=== PATIENT | female | born 1950 | race Caucasian/White ===

== ENCOUNTER → 2020-11-25 13:29 | Outpatient (CLI) | payer MEDICARE, OTHER, SELFPAY | PROVIDERS: PCP Internal Medicine; Referring Provider Internal Medicine; Visit Provider Internal Medicine | DX: M81.0 Age-related osteoporosis without current pathological fracture (principal) | CPT/HCPCS: 77080 ==

== ENCOUNTER 2021-04-26 14:52 | Emergency (ER) | payer MEDICARE, OTHER, SELFPAY ==
[2021-04-26 15:00] VITALS: BP 145/61; PULSE 83; RESP 18; TEMP 36.4; O2SAT 98; BMI 22.6
[2021-04-26 15:21] LABS: Add Manual Diff / Slide Review NO; Basophils Absolute Auto 100 /uL (0-100); Basophils Percent Auto 0.8 % (0-2); Eosinophils Absolute Auto 100 /uL (0-450); Eosinophils Percent Auto 1.3 % (2-4); Hemoglobin 13.2 g/dL (12.0-16.0); Lymphocytes Absolute Auto 2000 /uL (1100-4500); Lymphocytes Percent Auto 17.6 % (25-40); Mean Corpuscular HGB Conc 33.9 % (30-36); Mean Corpuscular Hemoglobin 29.4 PG (26-34); Mean Corpuscular Volume 86.8 fL (80-100); Monocytes Absolute Auto 1000 /uL (0-900); Monocytes Percent Auto 8.7 % (3-14); Neutrophils Absolute Auto 8200 /uL (1500-7000); Neutrophils Percent Auto 71.6 % (50-75); Platelet Count 249 X10^3/uL (150-400); Red Blood Cell Count 4.49 X10^6/uL (4.0-5.2); Red Cell Distribution Width 13.4 % (11.6-14.8); White Blood Cell Count 11.5 X10^3/uL (4.5-11.0)
[2021-04-26 15:36] LABS: Alanine Aminotransferase 14 IU/L (<35); Albumin 4.4 g/dL (3.5-5.0); Albumin Globulin Ratio 1.6 (1.0-2.8); Alkaline Phosphatase 71 U/L (38-126); Aspartate Aminotransferase 24 IU/L (14-36); BUN Creatinine Ratio 23.1 (6-22); Bilirubin Total 0.4 mg/dL (0.2-1.3); Blood Urea Nitrogen 18 mg/dL (7-17); Calcium 9.9 mg/dL (8.4-10.2); Carbon Dioxide 26 mmol/L (22-32); Chloride 105 mmol/L (98-107); Estimated Glomerular Filt Rate > 60.0 mL/min (>60); Globulin 2.7 g/dL (1.7-4.1); Glucose 91 mg/dL (80-110); HEMOLYSIS < 15 (0-50); Lipase 104 U/L (23-300); Potassium 3.9 mmol/L (3.4-5.1); Sodium 139 mmol/L (137-145); Total Protein 7.1 g/dL (6.3-8.2)
== END 2021-04-26 16:54 | disposition left against medical advice (07) ==
PROVIDERS: Emergency Provider Emergency Medicine
DX: R10.9 Unspecified abdominal pain (principal)
CPT/HCPCS: 36415; 80053; 83690; 85025; 99283

== ENCOUNTER 2021-04-28 15:59 | Emergency (ER) | payer MEDICARE, OTHER, SELFPAY ==
[2021-04-28 16:09] VITALS: BP 141/63; PULSE 83; RESP 16; TEMP 36.6; O2SAT 98
--- NOTE | 2021-04-28 16:21 | ED.ABDPAIN ---
HPI - Abdominal Pain General Chief Complaint: Abdominal Pain Stated Complaint: Plank Pain and Abd Pain Time Seen by Provider: 04/28/21 16:20 Source: patient Mode of arrival: Ambulatory History of Present Illness HPI narrative: The patient developed left back pain 5 days ago. She has persistent left lower quadrant abdominal pain. She denies dysuria or hematuria. She has no nausea, vomiting, diarrhea or constipation. She says she has a history of colitis. Her appetite remains normal. She has no fever chills with the current symptoms. She has no URI symptoms, no sore throat, no headache. She has no cough, chest pain or palpitations. She has no prior history of GI or surgeries. Related Data Home Medications Medication Instructions Recorded Confirmed levothyroxine 75 mcg tablet 75 mcg PO DAILY 04/28/21 04/28/21 (Synthroid) metformin 500 mg tablet 500 mg PO DAILY 04/28/21 04/28/21 omeprazole 20 mg capsule,delayed 20 mg PO DAILY 04/28/21 04/28/21 release pravastatin 40 mg tablet 40 mg PO DAILY 04/28/21 04/28/21 Allergies Allergy/AdvReac Type Severity Reaction Status Date / Time codeine Allergy Verified 04/28/21 16:14 Sulfa (Sulfonamide Allergy Verified 04/28/21 16:14 Antibiotics) Review of Systems Constitutional Constitutional: Reports as per HPI, Denies body ache(s), Denies chills, Denies fever(s) and Denies headache(s) Eyes Eyes: Denies change in vision ENT Ears, Nose, Mouth, and Throat: Denies vertigo, Denies headache(s) and Denies sore throat Cardiovascular Cardiovascular: Denies chest pain, Denies rapid heart rate and Denies dyspnea Respiratory Respiratory: Denies chest congestion, Denies cough and Denies dyspnea Gastrointestinal Gastrointestinal: Reports as per HPI Genitourinary Genitourinary: Reports as per HPI Musculoskeletal Musculoskeletal: Reports back pain, Denies myalgias and Denies muscle cramps Integumentary/Breasts Skin/Breast: Denies lesions and Denies rash Neurologic Neurologic: Denies confusion, Denies vertigo and Denies headache(s) Psychiatric Psychiatric: Denies confusion Hematologic/Lymphatic On Anticoagulants: No Patient History Medical History (Updated 04/28/21 @ 18:44 by Tim Mckenna MD) Hypothyroidism Social History Smoking Status: Current every day smoker Smoking Status: Current every day smoker alcohol intake frequency: other Substance Use Type: does not use Exam Initial Vital Signs Initial Vital Signs: Vital Signs Temperature 98 F 04/28/21 16:09 Pulse Rate 83 04/28/21 16:09 Respiratory Rate 16 04/28/21 16:09 Blood Pressure 141/63 H 04/28/21 16:09 Pulse Oximetry 98 04/28/21 16:09 Const General: cooperative, healthy appearing and comfortable Limitations: mental status not altered HENCT Head: normal to inspection, normocephalic and atraumatic Face and sinus: dry mucous membranes Throat: posterior oropharynx normal Eyes Conjunctivae: conjunctivae normal Sclera: sclerae normal Pupils: PERRL EOM: EOM intact bilaterally Neck Neck: No JVD Resp Auscultation: clear to auscultation bilaterally Cardio Rate: regular rate Rhythm: regular rhythm Heart Sounds: S1 normal, S2 normal and no murmurs GI Other: No distension. LLQ tenderness without distention, guarding or rebound. No palpable masses. Back/Spine/Pelvis Back: No CVA tenderness Skin General: no rashes or lesions noted Neuro General: patient alert, patient awake, patient oriented x3 and no focal motor deficits Extrem General: normal to inspection, no pedal edema and no calf tenderness Psych Mental Status: mental status grossly normal Course Course Course Narrative: CT shows diverticulosis without evidence of diverticulitis. There is perinephric stranding, nonspecific. There is also a paraovarian cyst that seemingly has nothing to do with her current pain. She initially had left lower abdominal pain. She now complains of epigastric pain. She was given a GI cocktail, Protonix has been ordered. A POC UA showed protein, trace blood only. Microscopic evaluation the urine does show mild hematuria. Conceivably, with a contrast CT, there could be a stone in place. She is not having left flank pain at this time. I suspect diverticulosis as the source of pain. In addition to the of the CT findings that I discussed in discharge, I did recommend colonoscopy. She is to follow up with the PCM. Orders Ordered: ED Orders 04/28/21 16:30 CT abdomen pelvis w con Stat 04/28/21 16:40 Complete Blood Count AUTO DIFF Stat Comprehensive Metabolic Panel Stat Lipase Stat 04/28/21 18:02 EKG-12 Lead Stat Sodium Chloride (Normal Saline 0.9%) 1,000 mls @ 250 mls/hr IV CONT GRANT Last Admin: 04/28/21 17:25 Dose: 250 mls/hr Documented by: DEIDRE Discontinued Medications Al Hydrox/Mg Hydrox/Simethicone 20 ml/ Lidocaine HCl 15 ml 0 ml PO NOW ONE Stop: 04/28/21 18:02 Last Admin: 04/28/21 18:05 Dose: 35 ml Documented by: Al Hydrox/Mg Hydrox/Simethicone 20 ml/ Lidocaine HCl 15 ml 0 ml PO NOW ONE Stop: 04/28/21 18:03 Morphine Sulfate (Morphine 2 Mg/Ml Inj) 2 mg IV NOW ONE Stop: 04/28/21 17:21 Last Admin: 04/28/21 17:24 Dose: 2 mg Documented by: DEIDRE Ondansetron HCl (Ondansetron 4 Mg/2 Ml Inj) 4 mg IV NOW ONE Stop: 04/28/21 17:21 Last Admin: 04/28/21 17:24 Dose: 4 mg Documented by: DEIDRE Vital Signs Vital signs: Vital Signs - 8 hr 04/28/21 16:09 04/28/21 17:39 Temperature 98 F Pulse Rate 83 74 Respiratory Rate 16 Blood Pressure 141/63 H 163/67 H Pulse Oximetry 98 96 MDM - Abdominal Pain Lab Data Result diagrams: 04/28/21 16:40 04/28/21 16:40 Labs: Lab Results 04/28/21 04/28/21 Range/Units 16:40 16:40 WBC 9.9 (4.5-11.0) X10^3/uL RBC 4.23 (4.0-5.2) X10^6/uL Hgb 12.6 (12.0-16.0) g/dL Hct 36.9 (36-46) % MCV 87.2 (80-100) fL MCH 29.7 (26-34) PG MCHC 34.1 (30-36) % RDW 13.6 (11.6-14.8) % Plt Count 227 (150-400) X10^3/uL Neut % (Auto) 64.4 (50-75) % Lymph % (Auto) 22.0 L (25-40) % [place] % (Auto) 11.0 (3-14) % Eos % (Auto) 1.2 L (2-4) % Baso % (Auto) 1.4 (0-2) % Neut # (Auto) 6400 (5209-7191) /uL Lymph # (Auto) 2200 (7373-6159) /uL [place] # (Auto) 1100 H (0-900) /uL Eos # (Auto) 100 (0-450) /uL Baso # (Auto) 100 (0-100) /uL Sodium 142 (137-145) mmol/L Potassium 3.6 (3.4-5.1) mmol/L Chloride 108 H (98-107) mmol/L Carbon Dioxide 27 (22-32) mmol/L BUN 16 (7-17) mg/dL Creatinine 0.85 (0.52-1.04) mg/dL Estimated GFR > 60.0 (>60) mL/min BUN/Creatinine Ratio 18.8 (6-22) Glucose 85 (80-110) mg/dL Calcium 9.7 (8.4-10.2) mg/dL Total Bilirubin 0.3 (0.2-1.3) mg/dL AST 18 (14-36) IU/L ALT 10 (<35) IU/L Alkaline Phosphatase 74 (38-126) U/L Total Protein 6.8 (6.3-8.2) g/dL Albumin 4.1 (3.5-5.0) g/dL Globulin 2.7 (1.7-4.1) g/dL Albumin/Globulin Ratio 1.5 (1.0-2.8) Lipase 58 (23-300) U/L Imaging Data CT scan - abdomen/pelvis: Radiologist's Impression: Close Abdomen/Pelvis CT (Signed) Cecy Burton - 04/28/21 Launch?[address] [address] [address] Scan Report Signed Patient: Autumn Silva MR#: [id number] : 1950 Acct:[id number] Age/Sex: 70 / F Date of Service: 04/28/21 Loc: ED Accession Number: [id number] ?? Procedure: CT abdomen pelvis w con Ordering Provider: Tim Mckenna MD PROCEDURE:? CT ABDOMEN PELVIS W CON ? INDICATIONS:? LLQ pain. ? TECHNIQUE:? After the administration of intravenous contrast, axial sections acquired from the lung bases to the pubic symphysis.? Coronal and sagittal reformats were performed.? For radiation dose reduction, the following was used:? automated exposure control, adjustment of mA and/or kV according to patient size.? ? COMPARISON:? None. ? FINDINGS:? Image quality:? Excellent.? ? Lung bases:? Bibasilar atelectasis. Heart:? No significant findings. ? ABDOMEN: Liver:? Normal in size.? Low-density nodules in liver are most likely hepatic cysts.? ? Gallbladder:? Surgically removed.? ? Biliary ducts:? No intrahepatic biliary dilation.? Bile duct measures 10 mm in diameter.? No common bile duct stones.? ? Pancreas:? Unremarkable.? ? Spleen:? Unremarkable.? ? Adrenal Glands:? Unremarkable.? ? Kidneys and Ureters:? Kidneys are normal in size and symmetrical enhancement.? There is trace left renal pelviectasis.? There is stranding around the left renal pelvis and and proximal left ureter.? No obstructive stones are identified.? Possible tiny stones in the left renal pelvis although with intravenous contrast, the finding is not definitive. ? Stomach and Bowel:? Stomach, small bowel loops, and colon are normal in caliber.? Mild diverticulosis without diverticulitis.? Normal appendix. Peritoneum:? No abnormal intraperitoneal fluid.? No free air.? ? Ventral Wall: ? No hernias.? Abdominal Nodes:? No retroperitoneal or mesenteric adenopathy by size criteria.? Vessels:? Aorta and inferior vena cava are normal in size.? ? PELVIS: Pelvic Organs:? Uterus is normal.? There is a 1.8 cm paraovarian cyst adjacent to the left ovary.? Right ovary is not visualized.? No pathological free-fluid in the cul-de-sac or adnexa. Bladder:? Unremarkable.? ? Pelvic Nodes: No enlarged lymph nodes.? Miscellaneous: No hernias are seen. ? ? ? Bones:? Mild degenerative changes in lumbar spine.? IMPRESSION:? ? 1. There is trace left renal pelviectasis with stranding in the left renal pelvis and proximal left ureter.? A recently passed stone and uroepithelial neoplasm are also on the differential diagnosis.? No obstructive renal stones are identified.? Possible tiny nonobstructive stones in the left renal pelvis. 2. Diverticulosis without diverticulitis. 3. Cholecystectomy.? There is dilation of the common bile duct, presumably postsurgical in nature.? No common bile duct stones are identified. 4. Multiple hepatic cysts. 5. There is a 1.8 cm left paraovarian cyst.? Pelvic ultrasound is suggested for follow-up. ? ? ? Dictated by: Leodan Burton M.D. on 04/28/2021 at 17:34 ? ? Approved by: Leodan Burton M.D. on 04/28/2021 at 17:48?? ECG Data Attestation: I personally reviewed and interpreted this ECG as follows: (Normal sinus rhythm rate 81 beats per minute. Normal intervals. No ectopy. Nonspecific ST changes. No acute findings.) Discharge Plan Departure Patient Disposition: Home Clinical Impression: Diverticulosis Abdominal pain Qualifiers: Abdominal location: generalized Qualified Code(s): R10.84 - Generalized abdominal pain Instructions: Diverticulitis Activity Restrictions/Additional Instructions: CT of the abdomen showed mild changes in the left kidney, nonspecific. This should be reviewed with her PCM. There is also a small cyst near your ovary, this also should be reviewed. The CT revealed diverticulosis, pouches on the colon wall. There is no evidence of diverticulitis, meaning infection of the diverticulosis. I would suggest follow-up with your doctor, consider colonoscopy. I would recommend Tylenol or Advil for the abdominal pain, I suspect diverticulosis may be part of the problem. Continue current dose of omeprazole. Follow up with her PCM, regarding the issues above. I think you should have a colonoscopy. Your PCM will have to arrange the consult for this. Prescriptions: No Action metformin 500 mg tablet 500 mg PO DAILY RF: 0 pravastatin 40 mg tablet 40 mg PO DAILY RF: 0 levothyroxine [Synthroid] 75 mcg tablet 75 mcg PO DAILY RF: 0 omeprazole 20 mg capsule,delayed release(DR/EC) 20 mg PO DAILY RF: 0
--- NOTE | 2021-04-28 16:30 | DI.CT.S_ITS ---
PROCEDURE: CT ABDOMEN PELVIS W CON INDICATIONS: LLQ pain. TECHNIQUE: After the administration of intravenous contrast, axial sections acquired from the lung bases to the pubic symphysis. Coronal and sagittal reformats were performed. For radiation dose reduction, the following was used: automated exposure control, adjustment of mA and/or kV according to patient size. COMPARISON: None. FINDINGS: Image quality: Excellent. Lung bases: Bibasilar atelectasis. Heart: No significant findings. ABDOMEN: Liver: Normal in size. Low-density nodules in liver are most likely hepatic cysts. Gallbladder: Surgically removed. Biliary ducts: No intrahepatic biliary dilation. Bile duct measures 10 mm in diameter. No common bile duct stones. Pancreas: Unremarkable. Spleen: Unremarkable. Adrenal Glands: Unremarkable. Kidneys and Ureters: Kidneys are normal in size and symmetrical enhancement. There is trace left renal pelviectasis. There is stranding around the left renal pelvis and and proximal left ureter. No obstructive stones are identified. Possible tiny stones in the left renal pelvis although with intravenous contrast, the finding is not definitive. Stomach and Bowel: Stomach, small bowel loops, and colon are normal in caliber. Mild diverticulosis without diverticulitis. Normal appendix. Peritoneum: No abnormal intraperitoneal fluid. No free air. Ventral Wall: No hernias. Abdominal Nodes: No retroperitoneal or mesenteric adenopathy by size criteria. Vessels: Aorta and inferior vena cava are normal in size. PELVIS: Pelvic Organs: Uterus is normal. There is a 1.8 cm paraovarian cyst adjacent to the left ovary. Right ovary is not visualized. No pathological free-fluid in the cul-de-sac or adnexa. Bladder: Unremarkable. Pelvic Nodes: No enlarged lymph nodes. Miscellaneous: No hernias are seen. Bones: Mild degenerative changes in lumbar spine. IMPRESSION: 1. There is trace left renal pelviectasis with stranding in the left renal pelvis and proximal left ureter. A recently passed stone and uroepithelial neoplasm are also on the differential diagnosis. No obstructive renal stones are identified. Possible tiny nonobstructive stones in the left renal pelvis. 2. Diverticulosis without diverticulitis. 3. Cholecystectomy. There is dilation of the common bile duct, presumably postsurgical in nature. No common bile duct stones are identified. 4. Multiple hepatic cysts. 5. There is a 1.8 cm left paraovarian cyst. Pelvic ultrasound is suggested for follow-up. Dictated by: Leodan Burton M.D. on 04/28/2021 at 17:34 Approved by: Leodan Burton M.D. on 04/28/2021 at 17:48
[2021-04-28 16:55] LABS: Add Manual Diff / Slide Review NO; Basophils Absolute Auto 100 /uL (0-100); Basophils Percent Auto 1.4 % (0-2); Eosinophils Absolute Auto 100 /uL (0-450); Eosinophils Percent Auto 1.2 % (2-4); Hematocrit 36.9 % (36-46); Hemoglobin 12.6 g/dL (12.0-16.0); Lymphocytes Absolute Auto 2200 /uL (1100-4500); Mean Corpuscular HGB Conc 34.1 % (30-36); Mean Corpuscular Hemoglobin 29.7 PG (26-34); Mean Corpuscular Volume 87.2 fL (80-100); Monocytes Absolute Auto 1100 /uL (0-900); Neutrophils Absolute Auto 6400 /uL (1500-7000); Neutrophils Percent Auto 64.4 % (50-75); Platelet Count 227 X10^3/uL (150-400); Red Blood Cell Count 4.23 X10^6/uL (4.0-5.2); Red Cell Distribution Width 13.6 % (11.6-14.8); White Blood Cell Count 9.9 X10^3/uL (4.5-11.0)
[2021-04-28 17:11] LABS: Alanine Aminotransferase 10 IU/L (<35); Albumin 4.1 g/dL (3.5-5.0); Albumin Globulin Ratio 1.5 (1.0-2.8); Alkaline Phosphatase 74 U/L (38-126); Aspartate Aminotransferase 18 IU/L (14-36); BUN Creatinine Ratio 18.8 (6-22); Bilirubin Total 0.3 mg/dL (0.2-1.3); Blood Urea Nitrogen 16 mg/dL (7-17); Calcium 9.7 mg/dL (8.4-10.2); Carbon Dioxide 27 mmol/L (22-32); Chloride 108 mmol/L (98-107); Estimated Glomerular Filt Rate > 60.0 mL/min (>60); Globulin 2.7 g/dL (1.7-4.1); Glucose 85 mg/dL (80-110); HEMOLYSIS < 15 (0-50); Lipase 58 U/L (23-300); Potassium 3.6 mmol/L (3.4-5.1); Sodium 142 mmol/L (137-145); Total Protein 6.8 g/dL (6.3-8.2)
[2021-04-28] MEDS: ONDANSETRON 4 MG/2 ML INJ IV (17:24)
[2021-04-28] MEDS: MORPHINE 2 MG/ML INJ IV (17:24)
[2021-04-28] MEDS: SODIUM CHLORIDE 0.9% 1,000 ML 250 ML IV (17:25)
[2021-04-28 17:39] VITALS: BP 163/67; PULSE 74; O2SAT 96
[2021-04-28 18:00] VITALS: PULSE 90; O2SAT 99
[2021-04-28 18:01] VITALS: BP 150/69; PULSE 85; O2SAT 99
[2021-04-28] MEDS: MAG HYDROX/ALUMINUM/SIMETH SUS 20 ML, LIDOCAINE VISCOUS 2% 15 ML PO (18:05)
[2021-04-28] MEDS: PANTOPRAZOLE 40 MG VIAL IV (18:36)
[2021-04-28 18:38] VITALS: O2SAT 81
[2021-04-28 18:40] VITALS: BP 171/69; PULSE 76; O2SAT 98
[2021-04-28 18:42] LABS: Bacteria Urine None Seen; RBC Urine 5-10/HPF (0-5/HPF); Squamous Epithelial Cell Urine None Seen (0-5/HPF); WBC Urine 0-1/HPF (0-5/HPF)
[2021-04-28 18:43] LABS: Culture Indicated Urine Cult Not Indicated
== END 2021-04-28 19:27 | disposition home or self-care (01) ==
PROVIDERS: Emergency Provider Emergency Medicine
DX: K57.90 Diverticulosis of intestine, part unspecified, without perforation or abscess without bleeding (principal); R10.84 Generalized abdominal pain
CPT/HCPCS: 36415; 74177; 80053; 81003; 81015; 83690; 85025; 93005; 93010; 96361; 96374; 96375; 99284; C9113; J2270; J2405; Q9967

== ENCOUNTER → 2021-09-26 13:27 | Outpatient (CLI) | payer MEDICARE, OTHER, SELFPAY ==
--- NOTE | 2021-09-26 | DI.US.S_ITS ---
PROCEDURE: US PELVIC COMPLETE INDICATIONS: LEFT OV CYST TECHNIQUE: Real-time scanning was performed of the pelvic organs, with image documentation. Additional endovaginal scanning was necessary due to incomplete visualization of the adnexal and endometrial structures by transabdominal scanning. COMPARISON: [facility], CT, CT ABDOMEN PELVIS W CON, 04/28/2021, 17:10. FINDINGS: Uterus: Uterus is anteverted and normal in size at 4.0 x 2.1 x 3.6 cm. The myometrium is homogeneous. The endometrium measures 3.3 mm combined thickness. Ovaries: Ovaries are suboptimally visualized. The right ovary measures 4.1 x 3.8 x 1.3 cm. The left ovary measures 1.3 x 0.9 x 2.3 cm. The ovaries have a normal sonographic appearance. There is a 5 millimeter diameter right ovarian cyst. No left ovarian cyst identified in the current study. There is a 1.9 by 1.3 x 2.1 centimeter shadowing structure adjacent to the left adnexa which may represent a loop of bowel. Other: No pathologic free abdominal or pelvic fluid. IMPRESSION: 1. Uterus is sonographically normal. 2. 5 millimeter right ovarian cyst. 3. No left ovarian cyst identified in the current study. Kalpana a 4. 1.9 x 1.3 x 2.1 centimeter shadowing structure adjacent to the left adnexa possibly representing non-peristalsing loop of bowel, however the lesion cannot be definitively characterized. Recommend follow-up pelvic ultrasound in 4-6 weeks or pelvic MRI for definitive characterization if clinically indicated. Dictated by: Daphne Gregorio MD, PhD on 09/26/2021 at 15:58 Approved by: Daphne Gregorio MD, PhD on 09/26/2021 at 16:04
== END ==
PROVIDERS: PCP Nurse Practitioner; Referring Provider Nurse Practitioner; Visit Provider Nurse Practitioner
DX: N83.201 Unspecified ovarian cyst, right side (principal)
CPT/HCPCS: 76830; 76856

== ENCOUNTER → 2024-12-12 09:39 | Outpatient (ROUT) | payer MEDICARE, OTHER, SELFPAY ==
[2024-12-12 10:24] LABS: Influenza A - CEPHEID Flu A NEGATIVE (NEGATIVE); Influenza B - CEPHEID Flu B NEGATIVE (NEGATIVE); Respiratory Syncytial Virus Negative (Negative)
[2024-12-12 10:29] LABS: COVID-19 CEPHEID 4-PLEX PCR Negative (Negative)
== END ==
PROVIDERS: PCP Nurse Practitioner; Visit Provider Family Medicine
DX: R05.1 Acute cough (principal)
CPT/HCPCS: 0241U

== ENCOUNTER → 2025-03-20 10:54 | Outpatient (ROUT) | payer OTHER, SELFPAY ==
[2025-03-20 11:38] LABS: COVID-19 CEPHEID 4-PLEX PCR Negative (Negative); Influenza A - CEPHEID Flu A NEGATIVE (NEGATIVE); Influenza B - CEPHEID Flu B NEGATIVE (NEGATIVE)
== END ==
PROVIDERS: PCP Nurse Practitioner; Visit Provider Family Medicine
DX: R05.1 Acute cough (principal)
CPT/HCPCS: 87637